=== PATIENT | male | born 1945 | race Caucasian/White ===

== ENCOUNTER → 2017-11-10 14:07 | Outpatient (CLI) | payer MEDICARE, SELFPAY ==
[2017-11-10 17:39] LABS: Amphetamine Urine VISTA NEGATIVE (<1000 ng/mL); Barbiturate Urine VISTA POSITIVE (< 200 ng/mL); Benzodiazepine Urine VISTA NEGATIVE (< 200 ng/mL); Cocaine Urine VISTA NEGATIVE (< 300 ng/mL); Ecstacy Urine VISTA NEGATIVE (< 500 ng/mL); Methadone Urine VISTA NEGATIVE (< 300 ng/mL); PCP Urine VISTA NEGATIVE (< 25 ng/mL); THC Urine VISTA NEGATIVE (< 50 ng/mL); Vista UDS pH Range 6
== END ==
PROVIDERS: Family Provider Family Medicine; PCP Family Medicine; Visit Provider Anesthesiology Pain Medicine
DX: F11.20 Opioid dependence, uncomplicated (principal)
CPT/HCPCS: 80307

== ENCOUNTER → 2019-05-03 15:02 | Outpatient (CLI) | payer MEDICARE, SELFPAY ==
--- NOTE | 2019-05-03 15:08 | RAD_ITS ---
STUDY: X-RAY - LUMBAR SPINE REASON FOR EXAM: Male, 73 years old. LOWER BACK PAIN. PATIENT STATES HAS HAD A LOT OF INJURY''S TO HIS BACK OVER THE YEARS. TECHNIQUE: 3 view(s) of the lumbar spine were obtained. COMPARISON: None FINDINGS: Normal lumbar lordosis. There is no substantial scoliosis. There is a normal alignment of the vertebrae. There is multilevel endplate spondylosis of the lumbar vertebrae. There is moderate loss of disc space at L5-S1 with mild degree of facet arthropathy. There is no demonstrated fracture. There is atherosclerotic calcification of the abdominal aorta without a demonstrated aneurysm. RAD/Lumbar Spine 2 or 3 Views IMPRESSION: Degenerative disc disease and facet arthropathy L5-S1. Electronically Signed: Tod So MD (Brooks) at 8:17 EST , Service support ,
== END ==
PROVIDERS: Family Provider Family Medicine; PCP Family Medicine; Referring Provider Anesthesiology Pain Medicine; Visit Provider Anesthesiology Pain Medicine
DX: M51.37 Other intervertebral disc degeneration, lumbosacral region (principal)
CPT/HCPCS: 72100

== ENCOUNTER 2021-06-03 16:07 | Outpatient (CLI) | payer MEDICARE, SELFPAY ==
--- NOTE | 2021-06-03 09:15 | BONBX_PTH ---
PATIENT: ARCELIA GONZALEZ LOC: [facility] U#:[id number] AGE/SX: 75/M ROOM: RE06/03/[address]: Dr. Berlin Castillo DO : 1945 BED: DIS: 06/03/2021 SPEC #: [id number] RECD: 06/03/21 15:05 STATUS: ANSELMO RAUL #: [id number] BRIAN: 06/03/21 09:[address]: Berlin Castillo DEPT: SURGICAL PATHOLOGY RECD BY: Sri Alexander ENTERED: 06/04/21 08:41 SP TYPE: Bone OTHR DR: Dr. Ajit Michelle MD [facility] Tissues: Vertebra, NOS Procedures: Decalcification bone/plaque Surgery Specimen Level IV HEADER OPERATION: Thoracic T12 kyphoplasty PRE-OP DIAGNOSIS: Wedge compression fracture T11-T12 TISSUE SUBMITTED: Bone T12 MICROSCOPIC DIAGNOSIS Bone T12, kyphoplasty: A piece of bone with reactive changes, clinically wedge compression fracture and blood clots. Negative for malignancy. PHUONG:cornell 06/05/2021 MICROSCOPIC DESCRIPTION Slides are reviewed. GROSS DESCRIPTION Received is one container labeled with the patient's name and not further designated. The specimen consists of multiple fragments of blood clot mixed with an elongated core of bone that in aggregate measure 2 x 1 x 0.1 cm. The specimen is totally submitted in one cassette after decalcification. / PHUONG:cornell 06/04/2021 TC:5 CPT: 73086, 69994
== END 2021-06-03 23:59 | disposition home or self-care (01) ==
LOC: LABSPEC 16:40
PROVIDERS: PCP Family Medicine; Referring Provider Orthopaedic Surgery; Visit Provider Orthopaedic Surgery
DX: S22.080A Wedge compression fracture of T11-T12 vertebra, initial encounter for closed fracture (principal); X58.XXXA Exposure to other specified factors, initial encounter
CPT/HCPCS: 88305; 88307; 88311

== ENCOUNTER 2022-01-15 07:19 | Inpatient (IN) | payer MEDICARE, SELFPAY ==
--- NOTE | 2022-01-09 10:45 | CASEMGMT ---
AKIKO WHITE Assessment: TC to pt for initial transition planning/care coordination assessment. RN CINDY introduced self and role at [facility], pt voices understanding and consents to assessment. Care providers, pharmacy, and demographics verified/updated. Admitting Dx: lumbar 5 sacral 1 posterior lumbar interbody fusion PCP:Viviana Specialists:abby Castillo Pharmacy: [facility] Retail Insurance: [employer] Prescription Benefit: yes LW/HPOA: Pt denies having a LW/DPOA and denies need for info regarding AD. He states his takes care of all of this but does not think he has one. LNOK: Geeta Andrew, ; Jered Andrew, brother Living Arrangements: Pt lives with in a mobile home with a ramp to enter. Pt reports he is I in ADL's and denies concerns at home. Transportation: Pt drives self and denies concerns with transportation. Pt states his brother can transport pt post surgery. DME/HHC/SNF: Pt has a CPAP at home, FWW, w/c and walk in shower. Pt denies hx of HHC or SNF stays. Pt states he wants to go to [facility] post surgery and [facility] TCU is his second choice. Pt has discussed this previously with a SW. Pt states his is fine to be alone when he is not there, denies dementia. Updated SW. Pt states no further concerns/needs. CM to follow. Advised pt to ask CM if any further question/concerns/needs arise, voices understanding. Pt Goal: [facility] Plan: TBD pending surgery, facility acceptance and precert
[2022-01-15] VITALS (14 sets, daily range): BP systolic 114–148; BP diastolic 62–117; PULSE 55–91; RESP 16–18; TEMP 36.1–36.7; O2SAT 90–98; BMI 29.5
[2022-01-15] MEDS: Lactated Ringers 1,000 ML 15 ML IV ×2 (06:29→10:30)
--- NOTE | 2022-01-15 07:15 | RAD_ITS ---
EXAM: XR LUMBOSACRAL SPINE, 2 OR 3 VIEWS CLINICAL INDICATION: L5-S1 POSTERIOR FUSION TECHNIQUE: Frontal and lateral views of the lumbar spine and sacrum. This report was created using [employer] report [employer] technology. COMPARISON: None. FINDINGS: AP and lateral fluoroscopic digital spot radiographs of the lower lumbar spine showing pedicular screws and rods at L5-S1 disc space level and disc implant with radiopaque markers inside L5-S1 disc space. RAD/Spine 1 View Any Level IMPRESSION: Normal intraoperative digital spot radiographs of the lower lumbar spine showing successful placement of pedicular screws and rods and disc implant at L5-S1 disc space level. Electronically Signed: Pietro Moya MD at 13:34 EDT ,
--- NOTE | 2022-01-15 07:16 | OP.PCM_ITS ---
Report of Operation Date of Procedure: 01/15/22 Pre-Operative Diagnosis: 1.Lumbar stenosis L5-S1 with spondylosis 2.Lumbar degenerative disc disease L5-S1 Post-Operative Diagnosis: 1.Lumbar stenosis L5-S1 with spondylosis 2.Lumbar degenerative disc disease L5-S1 Surgery/Procedure Performed:: 1. L5-S1 posterior lumbar interbody fusion 2. Insertion of intervertebral biomechanical device x1 3. Structural allograft for spinal fusion 4. L5 bilateral laminectomies, foraminotomies, facetectomies, decompression of bilateral nerve roots 5. S1 bilateral laminectomies, foraminotomies, facetectomies, decompression of bilateral nerve roots 6. L5-S1 posterior lateral fusion 7. Pedicle screw fixation 8. Local autograft for spinal fusion 9. Neuro monitoring bilateral upper and bilateral lower extremities Description of Surgical Findings:: The patient is a 76-year-old male with intractable back and leg pain. Image studies confirm the above diagnoses. He has failed conservative treatment to include medication physical therapy and injections. The patient opted for operative intervention understanding the risk to include but not limited to infection, bleeding, damage to nerves arteries and veins, possibility of spinal fluid leak, nonunion, hardware failure, continued pain, need for further surgery, deep vein thrombosis, pulmonary embolism, heart attack, risk of stroke or . The patient was identified in the preoperative holding area. There he received preoperative IV antibiotics and was then transferred to the operative suite. Once in the operative suite after general endotracheal anesthesia was establish ed the patient was positioned prone on the Shay operating table. All bony prominences were padded accordingly. The lumbar spine was prepped and draped in a standard surgical fashion. Bear hugger's were not turned on until the drapes were placed and sealed with Ioban. A midline incision was made and taken to the level of the lumbodorsal fascia. The fascia was divided and subperiosteal disse ction was taken down to the level of the transverse processes of L5 and the sacral ala bilaterally. Deep retractors were placed. A bone scalpel was used to make cuts along the lamina at L5 and then a series of Kerrisons and rongeurs were used removing the spinous process and lamina at L5. Then facetectomies of greater than 50% were performed as well as foraminotomies decompressing the bilateral L5 and S1 nerve roots. Given the severity of the stenosis I needed to perform wide bilateral laminectomies and near complete facetectomies in order to decompress the neural elements thus creating instability necessitating the fusion. I then proceeded with the interbody fusion. The nerve roots and dura were retracted medially and a knife was used to perform an annulotomy. Endplate elevators, curettes, and pituitaries were utilized to remove disc material. Endplates were prepared with a rasp. An appropriate sized intervertebral peek cage device measuring 9 mm was packed with morselized cancellous allograft and impacted into position completing the posterior lumbar interbody fusion at L5- S1. I then proceeded with pedicle screw fixation. A power bur was used for the starting points. Starting points were found at the junction of the superior articular process and transverse process at L5 bilaterally and the sacral ala bilaterally. Pedicle probes were placed bilaterally and then 6.5 x 55 mm screws were placed bilaterally at L5 and 6.5 x 50 mm screws were placed bilaterally at S1. The screws were tested with intraoperative neurophysiologic monitoring and they tested within normal limits. Connecting rods were then applied and secured with set screws. I then proceeded with the posterior lateral fusion. This was accomplished by decorticating the transverse process bilaterally at L5 and the sacral ala at S1. This decorticated bone was then bridged with local autograft from the decompression as well as morselized cancellous allograft therefore completing the posterior lateral fusion at L5-S1. The incision was thoroughly irrigated. Tisseel was placed over the dura as a hemostatic agent. A deep drain was placed. The fascia was closed with #1 Vicryl, subcutaneous with 2-0 Vicryl and skin with 2-0 nylon. Sterile dressing was applied with 4 x 4's ABD and tape. Sponge instrument and needle counts were correct at the end of the case. The patient was extubated and taken to the PACU without incident. Surgeon: Berlin Castillo Type of Anesthesia: General Drains: Hemovac Estimated Blood Loss (mL): 450 cc Fluids Replaced: 1500 cc Grafts/Implants Used: Unified spine, Talos, Vitae OS, DBM Complications None Admit VTE Documentation VTE Present on Admission: No
--- NOTE | 2022-01-15 07:16 | PCM.PN.ORT ---
Subjective Subjective The patient was seen postoperatively in the PACU. He is resting comfortably. His pain is controlled. He denies any numbness tingling or weakness Objective Data Objective Data Vital Signs: Vital Signs Temp Pulse Resp BP Pulse Ox O2 Del Method 97.1 F L 55 L 18 148/95 H 97 Room Air 01/15/22 06:19 01/15/22 06:19 01/15/22 06:19 01/15/22 06:19 01/15/22 06:19 01/15/22 06:19 Oxygen Delivery Method Room Air Weight: 200 lb Body Mass Index (BMI) 29.5 Physical Exam Const alert and no apparent distress General Appearance: cooperative and comfortable HEENT normocephalic and head/scalp atraumatic Head and Scalp: normal to inspection and normocephalic Eyes EOMs intact bilaterally and conjunctivae normal Neck full ROM General: normal visual inspection Chest inspection of chest normal and palpation of chest normal Resp normal respiratory effort and normal air movement Cardio regular rate, regular rhythm and peripheral pulses 2+ throughout GI soft to palpation, non-tender and non-distended Back/Spine Back/Spine Narrative: Dressing clean dry and intact. Drain in place and functioning with small amount of serosanguineous fluid present Cervical Spine: cervical ROM normal Thoracic Spine / Upper Back: normal to inspection Lumbar Spine / Lower Back: normal to inspection Extremity normal to inspection, full ROM, normal capillary refill, no clubbing, cyanosis or edema and no calf tenderness Skin no rashes or lesions noted General Skin Exam: no breakdown Neuro oriented x3, CN's II-XII intact bilaterally, moves all extremities, no focal motor deficits, no sensory deficits noted and deep tendon reflexes 2+ bilaterally Motor Exam: strength 5/5 throughout Assessment & Plan Assessment/Plan (1) Lumbar stenosis: PLAN: Okay to admit to floor See orders Pain control and activity as tolerated. Back brace on at all times while out of bed Continue antibiotics while drain in place Discharge planning likely home tomorrow
--- NOTE | 2022-01-15 07:16 | PCM.DC.SUM ---
Providers Date of Admission: 01/15/22 Primary Care Physician: Dr. Yulisa [facility] MD Reason For Visit: LUMBAR 5 SACRAL 1 POSTERIOR LUMBAR INTERBODY FUSIO Medications at Discharge Home Medications cholecalciferol (vitamin D3) 125 mcg (5,000 unit) tablet (Vitamin D3) 125 mcg PO DAILY supplement 10/03/21 donepezil 10 mg tablet 10 mg PO BID Dementia 10/03/21 duloxetine 40 mg capsule,delayed release 40 mg PO DAILY Depression 10/03/21 levothyroxine 100 mcg tablet 125 mcg PO DAILY Thyroid 10/03/21 memantine 10 mg tablet 10 mg PO BID Dementia 10/03/21 simvastatin 80 mg tablet 80 mg PO QHS HLD 10/03/21 hydrocodone-acetaminophen 5-325mg 5mg-325mg 1 tab PO Q6H 7 days #28 tabs 01/15/22 Hospital Course Operations - (L5-S1 posterior lumbar interbody fusion, decompression, posterior spinal fusion with instrumentation, use of allograft) Summary of Care Provided Hospital Course: The patient is a 76-year-old male who underwent L5-S1 posterior lumbar interbody fusion, decompression, posterior spinal fusion with instrumentation, use of allograft on 01/15/2022. He was subsequently admitted. The hospitalist was consulted for medical management. The patient progressed well. His pain was controlled and he was mobilizing well. His drain was pulled on postoperative day 1. No significant medical issues were reported. He was subsequently discharged home on 01/16/2022 to follow-up with Dr. Castillo in 3 weeks Physical Exam Const alert, oriented x3 and no apparent distress General Appearance: cooperative, comfortable and well kempt HEENT normocephalic and head/scalp atraumatic Eyes EOMs intact bilaterally and conjunctivae normal Neck full ROM General: normal visual inspection Chest inspection of chest normal and palpation of chest normal Resp normal respiratory effort Effort and Inspection: able to speak in complete sentences Cardio regular rate and peripheral pulses 2+ throughout GI soft to palpation, non-tender and non-distended Back/Spine Back/Spine Narrative: Dressing clean dry and intact. Incision well approximated with interrupted sutures in place. No tenderness erythema drainage or fluctuance Cervical Spine: cervical ROM normal Thoracic Spine / Upper Back: normal to inspection Lumbar Spine / Lower Back: normal to inspection Extremity normal to inspection, full ROM, normal capillary refill, no clubbing, cyanosis or edema and no calf tenderness Skin no rashes or lesions noted General Skin Exam: no breakdown Neuro oriented x3, CN's II-XII intact bilaterally, moves all extremities, no focal motor deficits, no sensory deficits noted and deep tendon reflexes 2+ bilaterally Motor Exam: strength 5/5 throughout Weight / BMI Weight Weight: 200 lb Body Mass Index (BMI) 29.5 D/C Instructions Discharge Diet: No restrictions Weight Bearing Status: Weight bearing as tolerated Additional Activity Instructions: No repetitive bending twisting or lifting greater than 5 pounds. Back brace on at all times while out of bed Call your doctor if your incision/area has: Continuous Slow Oozing, Sudden Increased Bleeding, Increased Pain/ Swelling, Increased Redness, Foul Smelling Discharge and Swelling at the incision site Call your doctor if you observe: Fever of 101 or Higher, Coldness, Increased Pain, Numbness or Tingling, Change in Color, Inability to urinate, Inability to have a bowel movement, Using more than 1 pad per hour, Shortness of breath, Dizziness, Fainting spells, Swelling in the ankles, Chest pain, Prolonged hiccupping, Increased palpitations (irregular heartbeat), Calf discomfort and Uncontrolled pain Cleanse incision/area with: Do not get Incision Wet and Keep Dressing Clean & Dry Additional Dressing/Incision Instructions: Change dressing daily with iodine gauze and tape. [place] dressing to shower Please Follow Up With: Berlin Castillo DO When: 3 weeks Meaningful Use Info Meaningful Use Diagnoses (Choose all that apply): None applicable Discharge Plan Admission Admit Date/Time: 01/15/22 07:19 Attending Provider: Berlin Castillo Primary Care Provider: Yulisa [facility] Consulting Providers: Parvin Nieto ; Mauri Gillespie Instructions Additional Instructions / Restrictions: 1. During your procedure, you received sedation through your IV. Please follow these instructions for the next 24 hours: Do not drive a motor vehicle, do not drink any alcoholic beverages, and do not sign any legal documents or make personal or business decisions. A responsible adult should stay with you at least 6 hours after the procedure. 2. Keep your surgical site/incision clean and the dressing dry and intact. Change dressing daily you may use an ice pack at the surgical site to reduce any swelling or discomfort. 3. Monitor the incision site for any signs or symptoms of infection. Watch for redness, excessive swelling or drainage, or continued pain at the incision site after 3 days. Contact your physician immediately for a fever, chills or a temperature of 101.5? F or greater. 4. Take your medication exactly as prescribed by your physician. Do not attempt to wean yourself off any of your medications even though your pain is improving. This process needs to be carefully monitored by your doctor. Take any antibiotics prescribed exactly as directed and until they are gone. 5. Avoid stretching, bending, pulling, twisting or any sudden movements. Do not bend or twist at the waist. Wear your back brace at all times when out of bed 6. No lifting greater than 5 pounds. 7. Do not operate a motor vehicle, equipment or a power tool while taking pain medication 8. Do not have any manipulation done by a chiropractor or any other physician without first consulting with the surgeon 9. Please contact our office if you are even scheduled for a CT scan or an MRI. 10. Please call us if you have any questions, problems or concerns. Discharge Orders/Prescriptions Prescriptions: New hydrocodone-acetaminophen 5-325 mg tablet 1 tab PO Q6H 7 Days Qty: 28 0RF Continued donepezil 10 mg Tablet 10 mg PO BID simvastatin 80 mg Tablet 80 mg PO QHS levothyroxine 100 mcg Tablet 125 mcg PO DAILY memantine 10 mg Tablet 10 mg PO BID cholecalciferol (vitamin D3) [Vitamin D3] 125 mcg (5,000 unit) Tablet 125 mcg PO DAILY duloxetine 40 mg Capsule,Delayed Release(Dr/Ec) 40 mg PO DAILY Referrals / Follow Up: Yulisa Hernandez MD [Primary Care Provider] - Berlin Castillo DO [Med Staff - Active Staff] - Disposition Disposition (needs filled in before D/C Order can be placed): Home, Self Care
[2022-01-15] MEDS: Cefazolin 2 GM in 0.9% Normal Saline 100 ML IV (07:30)
[2022-01-15] MEDS: THROMBIN (RECOMBINANT) 20,000 UNIT VIAL 20000 UNIT TOPICAL ×2 (08:30)
[2022-01-15] MEDS: Heparin 10,000 UNITS/10 ML Vial 10000 UNITS (09:43)
--- NOTE | 2022-01-15 13:59 | CASEMGMT ---
Social Work SW informed by RNCM, Paula, that pt wants [facility] post surgery for rehab. HERMES called Anna at [facility] to confirm [facility] in network for pt. Anna explained pt previously set to go to [facility] for other concerns but ended by escobar covid. Anna looked pt up and stated with out of network benefit pt would still be responsible for 50% co-pay of $184 per day. HERMES Lopez notified. PLAN: Await post surgery PT/OT evals to determine if SNF is needed. Emily David, MIKO
--- NOTE | 2022-01-15 14:19 | CON.PCM.HO_ITS ---
Assessment & Plan Assessment/Plan (1) Lumbar stenosis: PLAN: Plan #Spinal stenosis s/p PLIF of L5-S1 * management as per spine surgery * PT/OT on board. Fall precautions * incentive spirometry use * pain management as per primary team * # BAMBI: on CPAP qhs #Deemntia: on donepezil and memantine #Hypothyroidism: on synthroid #Hyperlipidemia: on statin DVT prophylaxis: as per primary team Thank you for the courtesy of the consult. Hospitalist team will continue to follow with you. HPI Consult Data Date of Consult: 01/15/22 HPI Narrative Reason for Consultation: medical management HPI Narrative: ARCELIA GONZALEZ, is a 76 M who was admitted to the orthopedic spine service after he had laminectomy and decompression of L3-L4. Hospitalist team was consulted for medical management. Patient seen and examined. He had no acute complaints. He denied any chest pain, shortness of breath, nausea vomiting or diarrhea. Review of systems otherwise negative. He uses a CPAP machine at home for sleep apnea. Pain was well controlled. PENDING SALE TO [facility] Medical History (Updated 01/15/22 @ 07:[address] Berlin Castillo, ) CPAP (continuous positive airway pressure) dependence Dementia Depression Former smoker Gait instability Gastric reflux High cholesterol History of diverticulitis Injury of head and neck Loss of hearing Migraine headache Thyroid disease Home Medications cholecalciferol (vitamin D3) 125 mcg (5,000 unit) tablet (Vitamin D3) 125 mcg PO DAILY supplement 10/03/21 [History Last Taken 01/14/22] donepezil 10 mg tablet 10 mg PO BID Dementia 10/03/21 [History Last Taken 01/14/22] duloxetine 40 mg capsule,delayed release 40 mg PO DAILY Depression 10/03/21 [History Last Taken 01/14/22] levothyroxine 100 mcg tablet 125 mcg PO DAILY Thyroid 10/03/21 [History Last Taken 01/14/22] memantine 10 mg tablet 10 mg PO BID Dementia 10/03/21 [History Last Taken 01/14/22] simvastatin 80 mg tablet 80 mg PO QHS HLD 10/03/21 [History Last Taken 01/14/22] hydrocodone-acetaminophen 5-325mg 5mg-325mg 1 tab PO Q6H 7 days #28 tabs 01/15/22 [Rx Last Taken Unknown] Allergy/AdvReac Type Severity Reaction Status Date / Time No Known Allergies Allergy Verified 01/15/22 06:09 Surgical History (Updated 12/31/21 @ 13:11 by Alexandria Shrestha) History of appendectomy History of cholecystectomy History of colectomy History of colonoscopy Hx of foot surgery Social History Smoking Status: Former smoker ROS Constitutional Constitutional: Denies anorexia, chills, fatigue, fever(s), malaise or weakness Eyes Eyes: Denies change in vision ENT HEENT: Denies dysphagia, headache(s) or sore throat Cardiovascular Cardiovascular: Denies chest pain, dyspnea on exertion, edema, lightheadedness, orthopnea, palpitations, paroxysmal nocturnal dyspnea, rapid heart rate or syncope Respiratory/Chest Respiratory/Chest: Denies cough, dyspnea, hemoptysis, shortness of breath at rest or shortness of breath with exertion Gastrointestinal Gastrointestinal: Denies abdominal pain, constipation, diarrhea, nausea or vomiting Genitourinary Genitourinary: Denies dysuria Musculoskeletal Musculoskeletal: Denies arthralgias or back pain Neurologic Neurologic: Denies confusion, disequilibrium, dizziness, focal weakness, seizures or syncope Psychiatric Psychiatric: Denies anxiety or depression Physical Exam Const alert, oriented x3 and no apparent distress General Appearance: cooperative HEENT normocephalic, head/scalp atraumatic, hearing grossly normal bilaterally and moist oral mucous membranes Mouth: oral and palatal mucosa normal Eyes PERRL, EOMs intact bilaterally and conjunctivae normal Neck no lymphadenopathy Resp normal respiratory effort, no retractions, no use of accessory muscles and clear to auscultation bilaterally Resp Narrative: on 2L of oxygen by nasal canula Cardio regular rate, regular rhythm, S1 normal heart sound, S2 normal heart sound and no murmurs GI normal to inspection, nondistended, normoactive bowel sounds, soft to palpation and non-tender Skin Skin Narrative: intact dressing over lower spine at surgical site; drain in place Neuro oriented x3, CN's II-XII intact bilaterally, moves all extremities and no focal motor deficits Sensorium / Orientation: awake Psych affect normal Radiology Impression Spine X-Ray 01/15/22 07:15 IMPRESSION: Normal intraoperative digital spot radiographs of the lower lumbar spine showing successful placement of pedicular screws and rods and disc implant at L5-S1 disc space level. Electronically Signed: Pietro Moya MD at 13:34 EDT , Charges/Coding Visit Charges Office Visits / Consults: [id number] IP Consult L4
[2022-01-15] MEDS: Acetaminophen 500 MG Tablet 1000 MG PO ×2 (15:29→20:50)
[2022-01-15] MEDS: oxyCODONE 5 MG Tablet PO (15:29)
[2022-01-15] MEDS: DULoxetine Hcl 20 MG Capsule 40 MG PO (15:30)
[2022-01-15] MEDS: Donepezil HCl 10 MG Tablet PO ×2 (15:30→20:50)
[2022-01-15] MEDS: Cholecalciferol (Vit D3) 125 MCG CAPSULE (5,000 UNITS) PO (15:31)
[2022-01-15] MEDS: Memantine Hydrochloride 10 MG Tablet PO ×2 (15:31→20:50)
[2022-01-15] MEDS: Cefazolin 1 GM/50 ML BAG IV ×2 (15:36→23:51)
[2022-01-15] MEDS: Lactated Ringers 1,000 ML 100 ML IV (17:00)
[2022-01-15] MEDS: Ensure Surgery 237 ML LIQUID PO (18:11)
[2022-01-15] MEDS: Levothyroxine 125 MCG Tablet PO (18:11)
[2022-01-15] MEDS: Atorvastatin Calcium 40 MG Tablet PO (20:50)
[2022-01-16] VITALS (11 sets, daily range): BP systolic 107–152; BP diastolic 63–80; PULSE 53–72; RESP 16–18; TEMP 36.7–37.3; O2SAT 84–98
[2022-01-16] MEDS: Acetaminophen 500 MG Tablet 1000 MG PO ×3 (05:17→20:38)
[2022-01-16] MEDS: Levothyroxine 125 MCG Tablet PO (05:17)
[2022-01-16] MEDS: 0.9% Saline Lock 10 ML Syringe IV ×3 (05:18→20:39)
[2022-01-16] MEDS: Ensure Surgery 237 ML LIQUID PO ×2 (07:48→17:37)
[2022-01-16] MEDS: oxyCODONE 5 MG Tablet PO ×3 (07:50→19:07)
[2022-01-16] MEDS: Ondansetron 4 MG/2 ML Vial IV (09:17)
--- NOTE | 2022-01-16 09:33 | NURSING ---
after breakfast pt with persistant prod cough with copious amts clear stringy sputum. pt gagging but denies feeling nauseated when asked. pt tearing up. o2 back on for desat 89%. dr. valle in room while pt having episode. unable to void and bladder scanned for 64. cxr ordered.
--- NOTE | 2022-01-16 09:35 | RAD_ITS ---
STUDY: X-RAY CHEST REASON FOR EXAM: Male, 76 years old. SOB TECHNIQUE: PA and lateral views of the chest. COMPARISON: None. FINDINGS: Linear opacity in the perihilar left lung consistent with scar discoid atelectasis. There is no demonstrated pleural abnormality. Normal size heart. Normal mediastinum and teja. Normal visualized pulmonary arteries. Normal visualized aortic arch and descending thoracic aorta. Normal visualized thoracic spine. Normal visualized ribs, clavicles, and shoulders. There is no demonstrated abnormality of the visualized soft tissue structures of the upper abdomen. RAD/Chest PA and Lateral IMPRESSION: Lingular discoid atelectasis or scarring. Electronically Signed: Mark Murry MD at 10:00 EDT ,
--- NOTE | 2022-01-16 10:09 | PN.HOSP_ITS ---
Subjective Subjective Patient seen and examined. He didnt feel very well today. He was coughing and retching, and bringing up a lot of clear sputum. He was also retching, with lots of clear sputum. He denied feeling short of breath. Review of systems is otherwise negative. Nurse subsequently informed me he was noted to have a mouth droop which was most pronounced when talking. Objective Data Objective Data Vital Signs: Vital Signs Temp Pulse Resp BP Pulse Ox O2 Del Method O2 Flow Rate 98.0 F 53 L 16 114/68 97 Nasal Cannula 2 01/16/22 06:02 01/16/22 07:00 01/16/22 06:02 01/16/22 06:02 01/16/22 07:58 01/16/22 07:58 01/16/22 07:58 Oxygen Flow Rate (L/min) 2 Oxygen Delivery Method Nasal Cannula Weight: 200 lb Body Mass Index (BMI) 29.5 Intake & Output: Intake and Output for Last 24 Hours 01/14/22 01/15/22 01/16/22 23:59 23:59 23:59 Intake Total 1900 / 1900 1190.33 / 1190.33 Output Total 1395 / 1395 1000 / 1000 Balance 505 / 505 190.33 / 190.33 Radiography Diagnostic Testing: Radiology Impression Spine X-Ray 01/15/22 07:15 IMPRESSION: Normal intraoperative digital spot radiographs of the lower lumbar spine showing successful placement of pedicular screws and rods and disc implant at L5-S1 disc space level. Electronically Signed: Pietro Moya MD at 13:34 EDT , Chest X-Ray 01/16/22 09:35 IMPRESSION: Lingular discoid atelectasis or scarring. Electronically Signed: Mark Murry MD at 10:00 EDT , Physical Exam Const alert, oriented x3 and no apparent distress General Appearance: cooperative HEENT normocephalic, head/scalp atraumatic, hearing grossly normal bilaterally and moist oral mucous membranes Head and Scalp: normocephalic Mouth: oral and palatal mucosa normal Eyes PERRL, EOMs intact bilaterally and conjunctivae normal Neck no lymphadenopathy Resp normal respiratory effort, no retractions and no use of accessory muscles Resp Narrative: few crackles bibasally, no wheezes. On 2L of oxygen by nasal canula Cardio regular rate, regular rhythm, S1 normal heart sound, S2 normal heart sound and no murmurs GI normal to inspection, nondistended, normoactive bowel sounds, soft to palpation and non-tender Extremity normal to inspection and full ROM Skin Skin Narrative: intact dressing over lower spine at surgical site; drain in place Neuro oriented x3, CN's II-XII intact bilaterally, moves all extremities and no focal motor deficits Sensorium / Orientation: awake and alert Motor Exam: strength 5/5 throughout Psych affect normal Assessment & Plan Assessment/Plan (1) Lumbar stenosis: PLAN: Plan #Spinal stenosis s/p PLIF of L5-S1 * today is POD 1 * management as per spine surgery * PT/OT on board. Fall precautions * incentive spirometry use * pain management as per primary team * #Hypoxia * patient throwing up this morning; there is concern about aspiration * saturation dropped to the high 80s, but came up to the 90s * CXR ordered which showed lingular discoid atelectasis or scarring * titrate oxygen to maintain sats >90% * breathing treatment with bronchodilators * IV zofran to help with nausea. * hold off on antibiotics for now. * #Facial droop with new onset dysphagia * patient noted to have a mouth droop later this morning, with associated new onset dysphagia * will get CT of the brain to rule out a stroke * speech therapy consulted * # BAMBI: on CPAP qhs #Dementia: on donepezil and memantine #Hypothyroidism: on synthroid #Hyperlipidemia: on statin DVT prophylaxis: as per primary team Charges/Coding Visit Charges Inpatient E&M: 71838 Subs Hosp L3
--- NOTE | 2022-01-16 11:20 | CASEMGMT ---
Social Work SW spoke with pt who states pt has a health care POA naming her Geeta Andrew and a living will. HERMES informed Geeta documents are not on file and requested they be brought in for scanning. MIKO Iqbal
--- NOTE | 2022-01-16 11:48 | CASEMGMT ---
Social Work SW attempted to meet with pt to discuss discharge plan however pt was not feeling well. Phone call to pt Geeta and HERMES introduced self and role of SW. Geeta states the original plan was for pt to go to SNF, but after speaking with the physician and realizing pt will not start therapy for 4-6 weeks they feel pt can return home. Pt states she will be with pt and assist with any care needs. Pt sister Jenny had called in prior to surgery with concerns with return home. Pt gave SW permission to call Jenny. Phone call placed and SW spoke with Jenny. She is also now agreeable to pt return home with . Jenny states family will be monitoring pt to make sure he is receiving needed care. Plan: Home with family MIKO Merlos
--- NOTE | 2022-01-16 12:44 | CT_ITS ---
STUDY: CT BRAIN WITHOUT CONTRAST REASON FOR EXAM: Male, 76 years old. new onset mouth droop, dysphagia RADIATION DOSAGE (If Supplied By Facility): CTDIvol = ( 44.99 ) mGy, DLP = ( 745.49 ) mGycm TECHNIQUE: Transaxial CT imaging of the brain was performed without administration of intravenous contrast material. Individualized dose optimization techniques were used for this CT. COMPARISON: No relevant priors. FINDINGS: Normal soft tissue structures. Normal calvarium. There is mild cerebral atrophy with widening of the extra-axial spaces and ventricular dilatation. There are areas of decreased attenuation within the white matter tracts of the supratentorial brain, consistent with microvascular disease changes. Normal basal ganglia and thalami. Normal brainstem. Normal cerebellum. There is no intracranial hemorrhage. There are no findings of an acute ischemic infarction. Normal visualized paranasal sinuses. CT/Brain/Head without Contrast IMPRESSION: Chronic involutional changes of the brain. Electronically Signed: Mark Murry MD at 13:23 EDT ,
--- NOTE | 2022-01-16 12:58 | NURSING ---
pt sister here and concerned that mouth still looks funny and crooked but better now as to when pt came to room from or. charge weigher in and pt smiled and no deficits. pt given mirror and denies anything looking off for him. dr. valle aware and ct ordered to rule out anything d/t dysphagia episode this am.
[2022-01-16] MEDS: DULoxetine Hcl 20 MG Capsule 40 MG PO (14:00)
[2022-01-16] MEDS: Memantine Hydrochloride 10 MG Tablet PO ×2 (14:01→20:39)
[2022-01-16] MEDS: Donepezil HCl 10 MG Tablet PO ×2 (14:01→20:39)
[2022-01-16] MEDS: Cholecalciferol (Vit D3) 125 MCG CAPSULE (5,000 UNITS) PO (14:01)
--- NOTE | 2022-01-16 14:07 | PHA.DC.MR ---
Pharmacy Service has performed discharge medication reconciliation for this patient upon transfer to inpatient rehab Home Medications cholecalciferol (vitamin D3) 125 mcg (5,000 unit) tablet (Vitamin D3) 125 mcg PO DAILY supplement 10/03/21 donepezil 10 mg tablet 10 mg PO BID Dementia 10/03/21 duloxetine 40 mg capsule,delayed release 40 mg PO DAILY Depression 10/03/21 levothyroxine 100 mcg tablet 125 mcg PO DAILY Thyroid 10/03/21 memantine 10 mg tablet 10 mg PO BID Dementia 10/03/21 simvastatin 80 mg tablet 80 mg PO QHS HLD 10/03/21 hydrocodone-acetaminophen 5-325mg 5mg-325mg 1 tab PO Q6H 7 days #28 tabs 01/15/22 The patient's discharge medication list was reviewed for discrepancies and discrepancies were resolved.
--- NOTE | 2022-01-16 15:50 | MDS.RN ---
sister and dr. tinsley called to update that pt will not be dc'd today per hospitalist care.
--- NOTE | 2022-01-16 16:39 | NURSING ---
pt yelling out and more confused. scopolamine patch dc'd. attempted to orient. pt not using call light and yelling out.
[2022-01-16] MEDS: Morphine 4 MG/ML Syringe IV (18:16)
[2022-01-16] MEDS: cycloBENZAPRine HCl 10 MG Tablet PO (18:49)
--- NOTE | 2022-01-16 19:58 | PN.HOSP_ITS ---
Hospitalist Note Patient with underlying dementia and has had agitation in the evenings. Will add low dose seroquel and continue to monitor. Also, given stability and agitation, not able to keep his irrigation engineer on will d/c.
[2022-01-16] MEDS: QUEtiapine 25 MG Tablet 12.5 MG PO (20:38)
[2022-01-16] MEDS: Atorvastatin Calcium 40 MG Tablet PO (20:39)
[2022-01-17] VITALS (9 sets, daily range): BP systolic 118–151; BP diastolic 62–93; PULSE 62–85; RESP 16–19; TEMP 36.4–36.8; O2SAT 88–100
[2022-01-17] MEDS: oxyCODONE 5 MG Tablet PO ×4 (00:23→17:13)
[2022-01-17] MEDS: cycloBENZAPRine HCl 10 MG Tablet PO ×2 (02:54→16:12)
[2022-01-17] MEDS: Levothyroxine 125 MCG Tablet PO (05:53)
[2022-01-17] MEDS: Acetaminophen 500 MG Tablet 1000 MG PO ×3 (05:53→20:59)
[2022-01-17 08:01] LABS: Absolute Lymphocyte Count 0.88 X10^3/uL (0.83-4.51); Absolute Neutrophil Count 7.9 X10^3/uL (2.0-7.7); Basophil# 0.03 X10^3/uL; Basophil% 0.3 % (0-1); Eosinophil# 0.03 X10^3/uL; Eosinophils% 0.3 % (0-5); Hemoglobin 11.5 g/dL (13.0-16.5); Lymphocyte # 0.88 X10^3/ul (0.83-4.51); Lymphocyte % 8.9 % (19-41); Mean Corp Hgb Conc 32.9 g/dL (32-36); Mean Corpuscular Hgb 32.2 pg (27.0-32.0); Monocyte# 1.02 X10^3/uL; Monocyte% 10.3 % (0-10); NRBC Flagged by Analyzer 0 % (0-5); Neutrophil # 7.89 X10^3/uL (2.7-7.7); Neutrophil % 79.6 % (47-70); Platelet Count 133 K/mm3 (150-450); RBC Distribution Width CV 12.8 % (11.6-14.6); RBC Distribution Width SD 45.9 fl (35.1-43.9); Red Blood Count 3.57 M/mm3 (4.6-6.2); White Blood Count 9.9 K/mm3 (4.4-11.0)
[2022-01-17] MEDS: Donepezil HCl 10 MG Tablet PO ×2 (08:09→21:03)
[2022-01-17] MEDS: Ensure Surgery 237 ML LIQUID PO ×2 (08:09→13:19)
[2022-01-17] MEDS: Memantine Hydrochloride 10 MG Tablet PO ×2 (08:09→20:59)
[2022-01-17 08:14] LABS: Anion Gap 6 (5-15); BUN 18 mg/dL (7-18); BUN/Creat Ratio 24.2 RATIO (10-20); Calcium,Total 8.3 mg/dL (8.5-10.1); Chloride 102 mmol/L (98-107); Creatinine, Serum 0.74 mg/dL (0.70-1.30); EST Glomerular Filtration Rate 109 mL/min (>60); Est Glom Filt Rate - Afr Amer 132 mL/min (>60); Estimated Creatinine Clearance 64.81 ml/min; Glucose 136 mg/dL (74-106); Potassium 3.9 mmol/L (3.5-5.1); Sodium Level 138 mmol/L (136-145)
--- NOTE | 2022-01-17 10:12 | PN.HOSP_ITS ---
Subjective Subjective Patient seen and examined. He had no active complaints and had an uneventful night. He is on 2L of oxygen. He is no longer bringing up a lot of sputum. He denies fever, chills, cough, shortness of breath, nausea, vomiting or diarrhea. Review of systems is otherwise negative. Objective Data Objective Data Vital Signs: Vital Signs Temp Pulse Resp BP Pulse Ox O2 Del Method O2 Flow Rate 97.6 F L 62 18 151/86 H 92 Nasal Cannula 2 01/17/22 02:53 01/17/22 02:53 01/17/22 02:53 01/17/22 02:53 01/17/22 03:05 01/17/22 03:06 01/17/22 09:30 Oxygen Flow Rate (L/min) 2 Oxygen Delivery Method Nasal Cannula Weight: 199 lb 15.983 oz Body Mass Index (BMI) 29.5 Intake & Output: Intake and Output for Last 24 Hours 01/15/22 01/16/22 01/17/22 23:59 23:59 23:59 Intake Total 1900 / 1900 1780.33 / 1780.33 700 / 700 Output Total 1395 / 1395 1450 / 1450 650 / 650 Balance 505 / 505 330.33 / 330.33 50 / 50 Lab / Micro Data Result Diagrams: 01/17/22 07:40 01/17/22 07:40 Labs: Laboratory Results - last 24 hr 01/17/22 07:40: WBC 9.9, RBC 3.57 L, Hgb 11.5 L, Hct 35.0 L, MCV 98.0 H, MCH 32.2 H, MCHC 32.9, RDW Std Deviation 45.9 H, RDW Coeff of [place] 12.8, Plt Count 133 L, MPV 10.0, Immature Gran % (Auto) 0.600, Neut % (Auto) 79.6 H, Lymph % (Auto) 8.9 L, [place] % (Auto) 10.3 H, Eos % (Auto) 0.3, Baso % (Auto) 0.3, Absolute Neuts (auto) 7.9 H, Absolute Lymphs (auto) 0.88, Nucleated RBC % 0 01/17/22 07:40: Sodium 138, Potassium 3.9, Chloride 102, Carbon Dioxide 30.0, Anion Gap 6, BUN 18, Creatinine 0.74, Estim Creat Clear Calc 64.81, Est GFR (MDRD) Af Amer 132, Est GFR (MDRD) Non-Af 109, BUN/Creatinine Ratio 24.2 H, Glucose 136 H, Calcium 8.3 L Radiography Diagnostic Testing: Radiology Impression Brain CT 01/16/22 12:44 IMPRESSION: Chronic involutional changes of the brain. Electronically Signed: Mark Murry MD at 13:23 EDT , Physical Exam Const alert, oriented x3 and no apparent distress General Appearance: cooperative HEENT normocephalic, head/scalp atraumatic, hearing grossly normal bilaterally and moist oral mucous membranes Head and Scalp: normocephalic Eyes PERRL, EOMs intact bilaterally and conjunctivae normal Neck no lymphadenopathy Resp normal respiratory effort, no retractions, no use of accessory muscles and clear to auscultation bilaterally Resp Narrative: on 2L of oxygen by nasal canula Cardio regular rate, regular rhythm, S1 normal heart sound, S2 normal heart sound and no murmurs GI normal to inspection, nondistended, normoactive bowel sounds, soft to palpation and non-tender Extremity normal to inspection and full ROM Skin Skin Narrative: intact dressing over lower spine at surgical site Neuro oriented x3, CN's II-XII intact bilaterally, moves all extremities and no focal motor deficits Sensorium / Orientation: awake and alert Motor Exam: strength 5/5 throughout Psych affect normal Assessment & Plan Assessment/Plan (1) Lumbar stenosis: PLAN: Plan #Spinal stenosis s/p PLIF of L5-S1 * today is POD 2 * management as per spine surgery * PT/OT on board. Fall precautions * incentive spirometry use * pain management as per primary team * #Hypoxia * resolved. * On 2L of oxygen; to wean off oxygen as tolerated * breathing treatment with bronchodilators * * #Facial droop with new onset dysphagia * facial droop resolved and dysphagia ahs resolved * CT of the brain was negative. * had no swallowing difficulty when speech therapy evaluated. * # BAMBI: on CPAP qhs #Dementia: on donepezil and memantine #Hypothyroidism: on synthroid #Hyperlipidemia: on statin DVT prophylaxis: as per primary team Disposition: patient ok for discharge from hospitalist standpoint Charges/Coding Visit Charges Inpatient E&M: 08251 Subs Hosp L2
[2022-01-17] MEDS: DULoxetine Hcl 20 MG Capsule 40 MG PO (10:51)
[2022-01-17] MEDS: Cholecalciferol (Vit D3) 125 MCG CAPSULE (5,000 UNITS) PO (10:51)
[2022-01-17] MEDS: Morphine 4 MG/ML Syringe IV ×3 (13:20→17:57)
[2022-01-17] MEDS: 0.9% Saline Lock 10 ML Syringe IV ×4 (13:21→17:57)
--- NOTE | 2022-01-17 15:33 | CM.ED ---
Addendum entered by Trudy Regalado 01/17/22 15:51: As family is not in the room with patient this writer editor had asked RN to provide patient with SNF list in [facility] for his review. However, chart review noted that patient had previously wanted to go to [facility]. Plan: [facility] Original Note: SW received call from RN caring for patient. Family reports that patient can not go home. Family wants patient to go to [facility]. Family is not in the room. HERMES sent RN list of SNF in [facility]. Trudy CASTAÑEDA
[2022-01-17] MEDS: dexAMETHasone 4 MG/ML Vial IV (16:12)
[2022-01-17] MEDS: Atorvastatin Calcium 40 MG Tablet PO (20:59)
[2022-01-17] MEDS: QUEtiapine 25 MG Tablet 12.5 MG PO (20:59)
[2022-01-17] MEDS: HYDROmorphone 0.5 MG/0.5 ML SYRINGE IV (21:00)
[2022-01-18] MEDS: 0.9% Saline Lock 10 ML Syringe IV ×3 (00:41→15:14)
[2022-01-18] MEDS: dexAMETHasone 4 MG/ML Vial IV ×3 (00:41→15:13)
[2022-01-18 03:25] VITALS: BP 142/77; PULSE 66; RESP 18; TEMP 36.9; O2SAT 92
[2022-01-18] MEDS: Acetaminophen 500 MG Tablet 1000 MG PO ×2 (06:18→22:19)
[2022-01-18] MEDS: Levothyroxine 125 MCG Tablet PO (06:18)
[2022-01-18 08:45] VITALS: BP 163/76; PULSE 83; RESP 18; TEMP 36.5; O2SAT 95
[2022-01-18] MEDS: DULoxetine Hcl 20 MG Capsule 40 MG PO (08:53)
[2022-01-18] MEDS: Cholecalciferol (Vit D3) 125 MCG CAPSULE (5,000 UNITS) PO (08:53)
[2022-01-18] MEDS: Ensure Surgery 237 ML LIQUID PO ×2 (08:53→17:00)
[2022-01-18] MEDS: oxyCODONE 5 MG Tablet PO ×2 (08:54→16:58)
[2022-01-18] MEDS: Memantine Hydrochloride 10 MG Tablet PO ×2 (08:54→22:18)
[2022-01-18] MEDS: Donepezil HCl 10 MG Tablet PO ×2 (08:54→22:19)
--- NOTE | 2022-01-18 09:44 | PN.HOSP_ITS ---
Subjective Subjective Patient seen and examined. HE complained of a migraine headache. He had no other complaints. Review of systems is otherwise negative. Objective Data Objective Data Vital Signs: Vital Signs Temp Pulse Resp BP Pulse Ox O2 Del Method O2 Flow Rate 98.4 F 66 18 142/77 H 92 Nasal Cannula 2 01/18/22 03:25 01/18/22 03:25 01/18/22 03:25 01/18/22 03:25 01/18/22 03:25 01/18/22 03:25 01/18/22 03:25 Oxygen Flow Rate (L/min) 2 Oxygen Delivery Method Nasal Cannula Weight: 199 lb 15.983 oz Body Mass Index (BMI) 29.5 Intake & Output: Intake and Output for Last 24 Hours 01/16/22 01/17/22 01/18/22 23:59 23:59 23:59 Intake Total 1780.33 / 1780.33 1000 / 1000 Output Total 1450 / 1450 1950 / 1950 400 / 400 Balance 330.33 / 330.33 -950 / -950 -400 / -400 Lab / Micro Data Result Diagrams: 01/17/22 07:40 01/17/22 07:40 Physical Exam Const alert, oriented x3 and no apparent distress General Appearance: cooperative HEENT normocephalic, head/scalp atraumatic, hearing grossly normal bilaterally and moist oral mucous membranes Head and Scalp: normocephalic Mouth: oral and palatal mucosa normal Eyes PERRL, EOMs intact bilaterally and conjunctivae normal Neck no lymphadenopathy Resp normal respiratory effort, no retractions, no use of accessory muscles and clear to auscultation bilaterally Resp Narrative: on 2L of oxygen by nasal canula Cardio regular rate, regular rhythm, S1 normal heart sound, S2 normal heart sound and no murmurs GI normal to inspection, nondistended, normoactive bowel sounds, soft to palpation and non-tender Extremity normal to inspection and full ROM Skin Skin Narrative: intact dressing over lower spine at surgical site. Abdominal brace in place Neuro oriented x3, CN's II-XII intact bilaterally, moves all extremities and no focal motor deficits Sensorium / Orientation: awake and alert Motor Exam: strength 5/5 throughout Psych affect normal Assessment & Plan Assessment/Plan (1) Lumbar stenosis: PLAN: Plan #Spinal stenosis s/p PLIF of L5-S1 * today is POD 3 * management as per spine surgery * PT/OT on board. Fall precautions * incentive spirometry use * pain management as per primary team * #Hypoxia * resolved. * On 2L of oxygen; to wean off oxygen as tolerated * breathing treatment with bronchodilators * * #Facial droop with new onset dysphagia * facial droop resolved and dysphagia has resolved * CT of the brain was negative. * had no swallowing difficulty when speech therapy evaluated. * # BAMBI: on CPAP qhs #Dementia: on donepezil and memantine #Hypothyroidism: on synthroid #Hyperlipidemia: on statin DVT prophylaxis: as per primary team Disposition: patient ok for discharge from hospitalist standpoint. Now awaiting placement Charges/Coding Visit Charges Inpatient E&M: 57720 Subs Hosp L2
[2022-01-18] MEDS: Acetaminophen/Butalbital/Caffe 1 Tablet PO ×2 (09:57→20:21)
[2022-01-18 17:00] VITALS: BP 164/88; PULSE 81; RESP 18; TEMP 36.8; O2SAT 95
--- NOTE | 2022-01-18 19:39 | PCM.PN.ORT ---
Subjective Subjective The patient was seen and examined. He is lying in bed resting comfortably. He is slightly confused and agitated but otherwise in no acute distress. He is moving around without difficulty. He does complain of some pain in the lower back at his surgery site when asked. Objective Data Objective Data Vital Signs: Vital Signs Temp Pulse Resp BP Pulse Ox O2 Del Method O2 Flow Rate 98.3 F 81 18 164/88 H 95 Room Air 2 01/18/22 17:00 01/18/22 17:00 01/18/22 17:00 01/18/22 17:00 01/18/22 17:00 01/18/22 17:00 01/18/22 10:30 Oxygen Flow Rate (L/min) 2 Oxygen Delivery Method Room Air Weight: 199 lb 15.983 oz Body Mass Index (BMI) 29.5 Intake & Output: Intake and Output for Last 24 Hours 01/16/22 01/17/22 01/18/22 23:59 23:59 23:59 Intake Total 1780.33 / 1780.33 1000 / 1000 120 / 120 Output Total 1450 / 1450 1949 / 1950 1949 / 1949 Balance 330.33 / 330.33 -950 / -950 -1830 / -1830 Lab / Micro Data Result Diagrams: 01/17/22 07:40 01/17/22 07:40 Physical Exam Const alert, oriented x3 and no apparent distress General Appearance: cooperative, comfortable and well kempt HEENT normocephalic and head/scalp atraumatic Head and Scalp: normal to inspection Eyes EOMs intact bilaterally and conjunctivae normal Neck full ROM General: normal visual inspection Chest inspection of chest normal and palpation of chest normal Resp normal respiratory effort and normal air movement Effort and Inspection: able to speak in complete sentences Cardio regular rate and peripheral pulses 2+ throughout GI soft to palpation, non-tender and non-distended Back/Spine Back/Spine Narrative: Dressing clean dry and intact. Incision well approximated with interrupted sutures in place. Mild resolving ecchymosis around the surgical site. No tenderness, erythema, drainage or fluctuance Cervical Spine: cervical ROM normal Thoracic Spine / Upper Back: normal to inspection Lumbar Spine / Lower Back: normal to inspection Extremity normal to inspection, full ROM, normal capillary refill, no clubbing, cyanosis or edema and no calf tenderness Skin no rashes or lesions noted General Skin Exam: no breakdown Neuro oriented x3, CN's II-XII intact bilaterally, moves all extremities, no focal motor deficits, no sensory deficits noted and deep tendon reflexes 2+ bilaterally Motor Exam: strength 5/5 throughout Assessment & Plan Assessment/Plan (1) Lumbar stenosis: PLAN: Plan I had a lengthy discussion with the patient. He is cleared from a medical standpoint for discharge. He is scheduled to be discharged to [facility] tomorrow. See discharge instructions. Follow-up with me in clinic as scheduled for suture removal. Call our clinic with any questions or concerns.
[2022-01-18 20:15] VITALS: BP 164/79; PULSE 93; RESP 14; TEMP 37.1; O2SAT 95
[2022-01-18] MEDS: QUEtiapine 25 MG Tablet 12.5 MG PO (22:18)
[2022-01-18] MEDS: Atorvastatin Calcium 40 MG Tablet PO (22:19)
[2022-01-19] VITALS (8 sets, daily range): BP systolic 123–167; BP diastolic 68–89; PULSE 59–99; RESP 14–18; TEMP 36.6–36.8; O2SAT 89–95
[2022-01-19] MEDS: Levothyroxine 125 MCG Tablet PO (06:19)
[2022-01-19] MEDS: Acetaminophen 500 MG Tablet 1000 MG PO ×3 (06:19→22:07)
--- NOTE | 2022-01-19 09:32 | CASEMGMT ---
Social Work SW called pt to discuss options of SNF vs. Home. Left message requesting , Geeta, call back to determine pt/family choice. Left contact information. MIKO Ramsay
[2022-01-19] MEDS: DULoxetine Hcl 20 MG Capsule 40 MG PO (10:23)
[2022-01-19] MEDS: Cholecalciferol (Vit D3) 125 MCG CAPSULE (5,000 UNITS) PO (10:23)
[2022-01-19] MEDS: cycloBENZAPRine HCl 10 MG Tablet PO ×2 (10:28→15:17)
[2022-01-19] MEDS: Memantine Hydrochloride 10 MG Tablet PO ×2 (10:28→22:06)
[2022-01-19] MEDS: oxyCODONE 5 MG Tablet PO ×2 (10:28→15:17)
[2022-01-19] MEDS: Donepezil HCl 10 MG Tablet PO ×2 (10:28→22:09)
--- NOTE | 2022-01-19 11:30 | CASEMGMT ---
Discharge Associate Attorney Yulia polanco dermatology physician assistant sent referral to [facility] via [facility]. Plan: [facility], Waiting Acceptance Yulia Monsalve Discharge Associate Attorney
--- NOTE | 2022-01-19 11:32 | CASEMGMT ---
Social Work HERMES received call from pt sister Jenny who states pt cannot return home at this time and SNF is needed. Jenny inquiring about [facility]. Per phone call with pt's on Wednesday, permission was given to speak with Jenny. HERMES informed Jenny that [facility] is out of network and there is a copay of $184 per day. HERMES reviewed list of area facilities that are in network with insurance. Jenny's second choice is [facility]. Jenny states she will speak with pt to update. HERMES placed call to pt Geeta and left message requesting return call. Yulia, discharge sales assistant entertainment and media, to make referral to [facility]. Plan: [facility], pending acceptance and MIKO Sanders
--- NOTE | 2022-01-19 13:42 | CASEMGMT ---
Discharge Cs Associate Eden from [facility] reached out. Patient has been accepted to [facility]. Pre-cert has been started. HERMES Diaz notified. Plan: [facility], Waiting pre-cert. Yulia Monsalve Discharge Cs Associate
--- NOTE | 2022-01-19 14:28 | CASEMGMT ---
Social Work SW called pt to inform of acceptance at [facility]. , Geeta, was appreciative and stated would wait for approval from insurance. SW requested Geeta call pt's sisters to update them. Geeta agreeable. PLAN: [facility], pending precert. MIKO Ramsay
[2022-01-19] MEDS: Ensure Plus High Protein 120 ML LIQUID PO ×2 (17:17→22:09)
--- NOTE | 2022-01-19 17:26 | PCM.PN.HOSP ---
Subjective Subjective Patient was seen and examined today, he voices no complaints of any fever chills or shortness of breath. We are currently awaiting authorization for short-term placement in a nursing home facility for the patient. Objective Data Objective Data Vital Signs: Vital Signs Temp Pulse Resp BP Pulse Ox O2 Del Method O2 Flow Rate 98.3 F 59 L 18 167/89 H 92 Room Air 2 01/19/22 17:06 01/19/22 17:06 01/19/22 17:06 01/19/22 17:06 01/19/22 17:06 01/19/22 17:06 01/19/22 13:22 Oxygen Flow Rate (L/min) 2 Oxygen Delivery Method Room Air Weight: 90.718 kg Body Mass Index (BMI) 29.5 Intake & Output: Intake and Output for Last 24 Hours 01/17/22 01/18/22 01/19/22 23:59 23:59 23:59 Intake Total 1000 / 1000 120 / 120 250 / 250 Output Total 1950 / 1950 1950 / 2550 2100 / 2100 Balance -950 / -950 -1830 / -2430 -1850 / -1850 Lab / Micro Data Result Diagrams: 01/17/22 07:40 01/17/22 07:40 Physical Exam Const alert, oriented x3, no apparent distress and average body habitus General Appearance: cooperative, well kempt and well developed Orientation / Consciousness: awake, oriented to person, oriented to place and oriented to time HEENT normocephalic, head/scalp atraumatic and moist oral mucous membranes Eyes PERRL, EOMs intact bilaterally and conjunctivae normal Neck supple, no JVD, thyroid normal and no carotid bruits General: trachea midline Resp normal respiratory effort, no retractions, no use of accessory muscles and clear to auscultation bilaterally Auscultation: Negative for rales, rhonchi or wheezes Cardio regular rate, regular rhythm, S1 normal heart sound, S2 normal heart sound, no murmurs, no rub and no gallops GI normal to inspection, nondistended, normoactive bowel sounds, soft to palpation, non-tender and non-distended Extremity no clubbing, cyanosis or edema Skin no rashes or lesions noted General Skin Exam: no breakdown Neuro oriented x3, CN's II-XII intact bilaterally, no focal motor deficits and no sensory deficits noted Sensorium / Orientation: awake and alert Speech: speech normal Psych affect normal Assessment & Plan Assessment/Plan (1) Lumbar stenosis: PLAN: Plan 1. Chronic depression-patient remains on Cymbalta #2 dementia-patient remains on Aricept and memantine #3 urinary retention-patient currently has a Bailey catheter in place, I will start him on Flomax today #4 essential hypertension-patient will remain on his present medications #5 hypothyroidism-patient is on Synthroid #6 spinal stenosis lumbar region-status post posterior lumbar interbody fusion L5-S1-PT and OT are seeing the patient, he will need at least short-term placement in a nursing home facility for rehab services Charges/Coding Visit Charges Inpatient E&M: 71959 Subs Hosp L2
[2022-01-19] MEDS: Acetaminophen/Butalbital/Caffe 1 Tablet PO (18:18)
[2022-01-19] MEDS: Tamsulosin HCl 0.4 MG Capsule 0.8 MG PO (18:19)
[2022-01-19] MEDS: Atorvastatin Calcium 40 MG Tablet PO ×2 (22:06→22:07)
[2022-01-19] MEDS: QUEtiapine 25 MG Tablet 12.5 MG PO (22:07)
--- NOTE | 2022-01-20 00:03 | NURSING ---
Pt has HX sleep apnea - placed on 2L O2 via [place]
[2022-01-20 05:00] VITALS: BP 156/82; PULSE 73; RESP 18; TEMP 36.9; O2SAT 93
[2022-01-20] MEDS: oxyCODONE 5 MG Tablet PO ×2 (06:00→14:38)
[2022-01-20] MEDS: Levothyroxine 125 MCG Tablet PO (06:00)
[2022-01-20] MEDS: Acetaminophen 500 MG Tablet 1000 MG PO ×2 (06:01→14:37)
[2022-01-20 07:35] VITALS: O2SAT 94
--- NOTE | 2022-01-20 07:53 | CASEMGMT ---
Social Work Fern from [facility] reached out via [employer] to inform insurance authorization has been obtained. This SW informed Dr. Castillo. MIKO Ramsay
[2022-01-20 08:10] VITALS: BP 144/72; PULSE 67; RESP 16; TEMP 36.7; O2SAT 92
[2022-01-20 08:50] VITALS: O2SAT 98
[2022-01-20 09:08] VITALS: O2SAT 98
[2022-01-20] MEDS: DULoxetine Hcl 20 MG Capsule 40 MG PO (10:31)
[2022-01-20] MEDS: Cholecalciferol (Vit D3) 125 MCG CAPSULE (5,000 UNITS) PO (10:31)
[2022-01-20] MEDS: Memantine Hydrochloride 10 MG Tablet PO (10:32)
[2022-01-20] MEDS: Donepezil HCl 10 MG Tablet PO (10:32)
[2022-01-20] MEDS: Ensure Plus High Protein 120 ML LIQUID PO ×2 (10:34→14:38)
[2022-01-20] MEDS: cycloBENZAPRine HCl 10 MG Tablet PO (10:35)
--- NOTE | 2022-01-20 11:39 | CASEMGMT ---
Social Work SW attempted to call pt Geeta to inform of insurance approval. Called cell phone number that was provided yesterday. Geeta voiced understanding that pt would be discharging and transferring to [facility] today. Geeta also shared she would inform pt's other family of the plan. Plan: [facility] MIKO Ramsay
--- NOTE | 2022-01-20 13:29 | PCM.TXEXTCAR ---
Diet Diet Order/Speech Therapy: 01/15/22 18:05 Diet: Regular - General Food consistency:: Regular Liquid Consistency:: Regular/Thin Is pt able to select menu?: No Diet Comments: Distant supervision, Easy to Chew meats Routine Orders/Code Status Change Bailey Catheter: Maintain Bailey catheter x1 week then discontinue Wound(s) back: Wound Type: Surgical Incision Therapies Weight Bearing: Full weight bearing Physical Therapy: Eval and Treat Occupational Therapy: Eval and Treat Problem/Diagnosis (1) Lumbar stenosis: Status: Acute Code(s): M48.061 - Spinal stenosis, lumbar region without neurogenic claudication (2) Urinary retention: Status: Acute Code(s): R33.9 - Retention of urine, unspecified (3) Alzheimer's dementia: Status: Chronic Code(s): G30.9 - Alzheimer's disease, unspecified; F02.80 - Dementia in other diseases classified elsewhere without behavioral disturbance (4) Hyperlipidemia: Status: Chronic Code(s): E78.5 - Hyperlipidemia, unspecified Plan 1. Chronic depression-patient remains on Cymbalta #2 dementia-patient remains on Aricept and memantine #3 urinary retention-patient currently has a Bailey catheter in place #4 essential hypertension-patient will remain on his present medications #5 hypothyroidism-patient is on Synthroid #6 spinal stenosis lumbar region-status post posterior lumbar interbody fusion L5-S1-PT and OT are seeing the patient, he will need at least short-term placement in a halfway facility for rehab services Allergies/Procedures Done in Hospital Allergies No Known Allergies Allergy (Verified 01/15/22 06:09) Procedures: - (L5-S1 posterior lumbar interbody fusion: 01/15/2022) Type of Care/Length of Stay Estimated LOS: Convalescent Care Less Than 30 days Type of Care Needed: Skilled Rehab Potential: Good Prognosis: Good Additional Orders/Day of Discharge H&P will serve as current which was dated: 12/30/21 Day of Discharge: 01/20/22 Dietary and Speech Recommendations Dietitian Recommendations/Changes: regular diet- texture/consistency modifications per SENIOR PIPING DESIGNER; will adjust ensure to ensure plus high protein 120mL 4x/day given decreased appetite Follow Up Care Please Follow Up With: Berlin Castillo DO Discharge Plan Admission Admit Date/Time: 01/15/22 07:19 Primary Reason for Your Visit: Lumbar stenosis L5-S1 with spondylosis Attending Provider: Berlin Castillo Primary Care Provider: Yulisa Hernandez Consulting Providers: Parvin Nieto ; Mauri Gillespie ; Moshe Carnes Instructions Additional Instructions / Restrictions: 1. During your procedure, you received sedation through your IV. Please follow these instructions for the next 24 hours: Do not drive a motor vehicle, do not drink any alcoholic beverages, and do not sign any legal documents or make personal or business decisions. A responsible adult should stay with you at least 6 hours after the procedure. 2. Keep your surgical site/incision clean and the dressing dry and intact. Change dressing daily you may use an ice pack at the surgical site to reduce any swelling or discomfort. 3. Monitor the incision site for any signs or symptoms of infection. Watch for redness, excessive swelling or drainage, or continued pain at the incision site after 3 days. Contact your physician immediately for a fever, chills or a temperature of 101.5? F or greater. 4. Take your medication exactly as prescribed by your physician. Do not attempt to wean yourself off any of your medications even though your pain is improving. This process needs to be carefully monitored by your doctor. Take any antibiotics prescribed exactly as directed and until they are gone. 5. Avoid stretching, bending, pulling, twisting or any sudden movements. Do not bend or twist at the waist. Wear your back brace at all times when out of bed 6. No lifting greater than 5 pounds. 7. Do not operate a motor vehicle, equipment or a power tool while taking pain medication 8. Do not have any manipulation done by a chiropractor or any other physician without first consulting with the surgeon 9. Please contact our office if you are even scheduled for a CT scan or an MRI. 10. Please call us if you have any questions, problems or concerns. Discharge Orders/Prescriptions Prescriptions: New hydrocodone-acetaminophen 5-325 mg tablet 1 tab PO Q6H PRN (Reason: pain) 7 Days Qty: 10 0RF tamsulosin 0.4 mg Capsule 0.8 mg PO DAILY@1730 Qty: 0 0RF Continued donepezil 10 mg Tablet 10 mg PO BID simvastatin 80 mg Tablet 80 mg PO QHS levothyroxine 100 mcg Tablet 125 mcg PO DAILY memantine 10 mg Tablet 10 mg PO BID cholecalciferol (vitamin D3) [Vitamin D3] 125 mcg (5,000 unit) Tablet 125 mcg PO DAILY duloxetine 40 mg Capsule,Delayed Release(Dr/Ec) 40 mg PO DAILY Referrals / Follow Up: Yulisa Hernandez MD [Primary Care Provider] - Berlin Castillo DO [Med Staff - Active Staff] - See Referral Note (call office to schedule appointment) Disposition Disposition (needs filled in before D/C Order can be placed): Home, Self Care
[2022-01-20 13:53] VITALS: BP 112/60; PULSE 68; RESP 14; TEMP 36.8; O2SAT 95
--- NOTE | 2022-01-20 13:55 | PHA.DC.MR ---
Pharmacy Service has performed discharge medication reconciliation for this patient. The patient's discharge medication list was reviewed for discrepancies and discrepancies were resolved. Home Medications cholecalciferol (vitamin D3) 125 mcg (5,000 unit) tablet (Vitamin D3) 125 mcg PO DAILY supplement 10/03/21 donepezil 10 mg tablet 10 mg PO BID Dementia 10/03/21 duloxetine 40 mg capsule,delayed release 40 mg PO DAILY Depression 10/03/21 levothyroxine 100 mcg tablet 125 mcg PO DAILY Thyroid 10/03/21 memantine 10 mg tablet 10 mg PO BID Dementia 10/03/21 simvastatin 80 mg tablet 80 mg PO QHS HLD 10/03/21 hydrocodone-acetaminophen 5-325mg 5mg-325mg 1 tab PO Q6H PRN pain 7 days #10 tabs 01/20/22 tamsulosin 0.4 mg capsule 0.8 mg PO DAILY@1730 #0 caps 01/20/22
--- NOTE | 2022-01-20 14:05 | CASEMGMT ---
Social Work SW completed 7000 convalescent form in [facility] system. Faxed discharge orders to [facility] via [employer]. Set up cot transportation through [facility] for 3:30pm. SW called pt to notify of transport time. Left message on voicemail as did not answer. Pt nurse notified of transport time. Disposition: [facility], skilled convalescent level of care MIKO Ramsay
--- NOTE | 2022-01-20 15:06 | NURSING ---
REPORT CALLED TO DHARA WHARTON AT [facility]
--- NOTE | 2022-01-20 15:12 | PCM.PN.HOSP ---
Subjective Subjective Patient was seen and examined today, we received approval for the patient to go to a long term facility for inpatient rehab services. I talked with spinal surgery about his care and Dr. Castillo agreed that the patient was surgically stable for discharge. Objective Data Objective Data Vital Signs: Vital Signs Temp Pulse Resp BP Pulse Ox O2 Del Method O2 Flow Rate 98.3 F 68 14 112/60 95 Room Air 2 01/20/22 13:53 01/20/22 13:53 01/20/22 13:53 01/20/22 13:53 01/20/22 13:53 01/20/22 13:53 01/20/22 09:08 Oxygen Flow Rate (L/min) 2 Oxygen Delivery Method Room Air Weight: 90.718 kg Body Mass Index (BMI) 29.5 Intake & Output: Intake and Output for Last 24 Hours 01/18/22 01/19/22 01/20/22 23:59 23:59 23:59 Intake Total 120 / 120 490 / 730 590 / 590 Output Total 1950 / 2550 2400 / 2600 450 / 450 Balance -1830 / -2430 -1910 / -1870 140 / 140 Lab / Micro Data Result Diagrams: 01/17/22 07:40 01/17/22 07:40 Micro: Microbiology 01/20/22 12:14 Nasal Secretion SARS-CoV-2 Antigen (Rapid) - Final Physical Exam Narrative alert, patient is oriented as to person and place General Appearance: cooperative, well kempt and well developed Orientation / Consciousness: awake, oriented to person, oriented to place HEENT normocephalic, head/scalp atraumatic and moist oral mucous membranes Eyes PERRL, EOMs intact bilaterally and conjunctivae normal Neck supple, no JVD, thyroid normal and no carotid bruits General: trachea midline Resp normal respiratory effort, no retractions, no use of accessory muscles and clear to auscultation bilaterally Auscultation: Negative for rales, rhonchi or wheezes Cardio regular rate, regular rhythm, S1 normal heart sound, S2 normal heart sound, no murmurs, no rub and no gallops GI normal to inspection, nondistended, normoactive bowel sounds, soft to palpation, non-tender and non-distended Extremity no clubbing, cyanosis or edema Skin no rashes or lesions noted General Skin Exam: no breakdown Neuro oriented x3, CN's II-XII intact bilaterally, no focal motor deficits and no sensory deficits noted Sensorium / Orientation: awake and alert Speech: speech normal Psych Patient exhibits mild confusion Assessment & Plan Assessment/Plan (1) Lumbar stenosis: (2) Urinary retention: (3) Alzheimer's dementia: (4) Hyperlipidemia: PLAN: Plan 1. Chronic depression-patient remains on Cymbalta #2 dementia-patient remains on Aricept and memantine #3 urinary retention-patient currently has a Bailey catheter in place, this will remain in place when the patient goes to the retirement, I will write for it to be discontinued in a week #4 essential hypertension-patient will remain on his present medications #5 hypothyroidism-patient is on Synthroid #6 spinal stenosis lumbar region-status post posterior lumbar interbody fusion [id number] appears medically stable for transfer to an extended care facility for short-term rehab services I personally completed the discharge packet/documentation for the patient be transferred to an extended care facility. Charges/Coding Visit Charges Inpatient E&M: 22572 Subs Hosp L3
== END 2022-01-20 15:45 | disposition skilled nursing facility (03) | DRG 455 ==
LOC: SDC 12:27 → MS3 12:27
PROVIDERS: Student in an Organized Health Care Education/Training Program; Admitting Provider Orthopaedic Surgery; PCP Internal Medicine; Referring Provider Internal Medicine; Visit Provider Orthopaedic Surgery
PROC: 0SG00AJ Fusion of Lumbar Vertebral Joint with Interbody Fusion Device, Posterior Approach, Anterior Column, Open Approach (ICD-10-PCS; CPT 22630; principal; 2022-01-15 07:00)
DX: M48.061 Spinal stenosis, lumbar region without neurogenic claudication (principal); F02.80 Dementia in other diseases classified elsewhere, unspecified severity, without behavioral disturbance, psychotic disturbance, mood disturbance, and anxiety; E03.9 Hypothyroidism, unspecified; G30.9 Alzheimer's disease, unspecified; E78.00 Pure hypercholesterolemia, unspecified; G47.33 Obstructive sleep apnea (adult) (pediatric); I10 Essential (primary) hypertension; I44.7 Left bundle-branch block, unspecified; M47.816 Spondylosis without myelopathy or radiculopathy, lumbar region; M51.36 Other intervertebral disc degeneration, lumbar region; F32.A Depression, unspecified; R09.02 Hypoxemia; R29.810 Facial weakness; R13.10 Dysphagia, unspecified; R33.9 Retention of urine, unspecified; Z87.891 Personal history of nicotine dependence
CPT/HCPCS: 36415; 70450; 71046; 72020; 76000; 80048; 85025; 87426; 92507; 92526; 92610; 97110; 97116; 97162; 97166; 97530; 97535; 97802; 97803; 99251; C1713; J7120; A4216; G0463; J2405

== ENCOUNTER → 2022-03-25 | Outpatient (CLI) | payer MEDICARE, SELFPAY ==
--- NOTE | 2022-03-25 15:44 | NEURO ---
NCS and/or EMG Patient Report Ordering Doctor: Berlin Castillo DATE OF SERVICE: 03/25/22 Zachariah presents for electrodiagnostic testing of the right upper limb. He reports numbness, weakness and tingling in the right hand. Electrodiagnostic findings: Right median motor nerve demonstrates prolonged distal latency with normal amplitude and borderline reduced conduction velocity. Right ulnar motor nerve demonstrates diminished amplitude. There is decreased ulnar motor conduction velocity, but no drop across the elbow. Right ulnar F wave not obtainable. Prolonged right median sensory latency at the wrist. Absent right ulnar sensory response. On needle EMG, there is decreased recruitment noted in the right first dorsal interosseous. Electrodiagnostic impression: This is an abnormal study. 1. Electrodiagnostic findings demonstrate right-sided median mononeuropathy. This consistent with a moderate right carpal tunnel syndrome. 2. 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 There is no evidence for cubital tunnel syndrome. 3. There is no electrodiagnostic evidence for cervical radiculopathy.
== END | disposition home or self-care (01) ==
LOC: PSN 14:49
PROVIDERS: PCP Internal Medicine; Referring Provider Orthopaedic Surgery; Visit Provider Orthopaedic Surgery
DX: R20.2 Paresthesia of skin (principal)
CPT/HCPCS: 95886; 95910

== ENCOUNTER → 2022-10-19 | Outpatient (CLI) | payer MEDICARE, SELFPAY ==
[2022-10-19 10:02] LABS: Hematocrit 46.7 % (40-54); Hemoglobin 14.9 g/dL (13.0-16.5); Mean Corp Hgb Conc 31.9 g/dL (32-36); Mean Corpuscular Hgb 32.1 pg (27.0-32.0); Mean Corpuscular Volume 100.6 fL (80-94); Mean Platelet Vol. 9.4 fl (6.2-12.0); Platelet Count 208 K/mm3 (150-450); RBC Distribution Width CV 13.9 % (11.6-14.6); RBC Distribution Width SD 51.8 fl (35.1-43.9); Red Blood Count 4.64 M/mm3 (4.6-6.2); White Blood Count 5.4 K/mm3 (4.4-11.0)
[2022-10-19 10:22] LABS: Vitamin B12 288 pg/mL (211-911)
[2022-10-19 10:24] LABS: AST(SGOT) 30 U/L (15-37); Alanine Aminotransfer ALT/SGPT 34 U/L (16-61); Albumin, Serum 3.8 g/dL (3.2-5.0); Alkaline Phosphatase 145 U/L (45-117); Anion Gap 4 (5-15); BUN 11 mg/dL (7-18); Chloride 104 mmol/L (98-107); Creatinine, Serum 1.37 mg/dL (0.70-1.30); EST Glomerular Filtration Rate 54 mL/min (>60); Est Glom Filt Rate - Afr Amer 65 mL/min (>60); Globulin 3.9 g/dL (2.2-4.2); Glucose 95 mg/dL (74-106); Potassium 3.9 mmol/L (3.5-5.1); Protein, Total 7.7 g/dL (6.4-8.2); Sodium Level 138 mmol/L (136-145); T4 Free Direct 0.63 ng/dL (0.76-1.46)
[2022-10-23 11:09] LABS: Free Kappa Light Chains 30.2 mg/L (3.3-19.4); Free Lambda Light Chains 17.5 mg/L (5.7-26.3)
== END | disposition home or self-care (01) ==
PROVIDERS: PCP Internal Medicine Infectious Disease; Referring Provider Psychiatry & Neurology Neurology; Visit Provider Psychiatry & Neurology Neurology
DX: G30.9 Alzheimer's disease, unspecified (principal); F02.80 Dementia in other diseases classified elsewhere, unspecified severity, without behavioral disturbance, psychotic disturbance, mood disturbance, and anxiety; G62.9 Polyneuropathy, unspecified; R33.9 Retention of urine, unspecified
CPT/HCPCS: 36415; 80053; 82607; 82746; 83883; 84425; 84439; 84443; 85027

== ENCOUNTER 2023-02-01 16:57 | Emergency (ER) | payer MEDICARE, SELFPAY ==
[2023-02-01 16:59] VITALS: BP 100/72; PULSE 60; RESP 19; TEMP 35.9; O2SAT 94; BMI 29.9
--- NOTE | 2023-02-01 17:07 | EKG12_ITS ---
Test Reason : SYNCOPE Blood Pressure : / mmHG Vent. Rate : 063 BPM Atrial Rate : 063 BPM P-R Int : 160 ms QRS Dur : 138 ms QT Int : 480 ms P-R-T Axes : 044 -37 -26 degrees QTc Int : 491 ms Sinus rhythm with Premature supraventricular complexes Left axis deviation Left bundle branch block Abnormal ECG Confirmed by JESÚS WILCOX, ISIDORO ([id number]), design editor JACQUELINE GOODMAN ([id number]) on 02/03/2023 10:44:58 AM Referred By: Confirmed By:ISIDORO ESPINOSA MD
[2023-02-01] MEDS: 0.9% Normal Saline (1000mL) 1,000 ML 1000 ML IV (17:10)
--- NOTE | 2023-02-01 17:21 | EDS_ITS ---
<Statement entered by Anna Chin MD - 02/01/23 20:35> I have personally performed a face to face assessment of the patient and have reviewed the RUFUS Note. Patient presents via EMS after near syncopal episode at the neurology office. Patient reportedly went to his appointment today having not eaten lunch as they were planning to go out afterwards. He felt a bit lightheaded and blood pressure was noted to be 80/60. They laid him down and gave him a piece of chocolate to eat as they were concern for low blood sugar as well. Patient feels improved at this time. Patient sitting upright in bed no acute distress. Head and neck examination unremarkable. Heart is slightly irregular with frequent PACs noted on the monitor. Lungs are clear. Abdomen is soft and nontender. No focal neurodeficits are noted. EKG is sinus with PACs. Lab work is unremarkable. Patient was not able to give a urine sample here. Bladder scan performed by nursing staff reveals only 100 cc of urine in the bladder. After IV fluids patient feels significantly improved. He is able to get up at bedside and does not feel weak or dizzy. He tolerated p.o. diet here without difficulty. Family is comfortable watching him at home and he will be discharged with them. HPI History of Present Illness Chief Complaint: Syncope Narrative Narrative: Patient is a 77-year-old male lives in a extended care facility with history of hypertension, hyperlipidemia, Alzheimer's dementia, lumbar stenosis who presents to the emergency department after a near syncopal episode. Patient states he was at a doctor's office, neurology. Patient then felt dizzy, lightheaded, and was laid down. Patient never actually had a full syncopal episode. Patient was given chocolate and felt much better. Did not check a blood sugar there. Patient was brought in by EMS. Patient is acting appropriate per the sister. [facility] Medical History (Updated 02/01/23 @ 18:33 by TRINI Arellano) CPAP (continuous positive airway pressure) dependence Dementia Depression Former smoker Gait instability Gastric reflux High cholesterol History of diverticulitis Injury of head and neck Loss of hearing Migraine headache Thyroid disease Home Medications cholecalciferol (vitamin D3) 125 mcg (5,000 unit) tablet (Vitamin D3) 125 mcg PO DAILY supplement 10/03/21 [History Last Taken 01/14/22] levothyroxine 100 mcg tablet 125 mcg PO DAILY Thyroid 10/03/21 [History Last Taken 01/14/22] hydrocodone-acetaminophen 5-325mg 5mg-325mg 1 tab PO Q6H PRN pain 7 days #10 tabs 01/20/22 [Rx Last Taken Unknown] tamsulosin 0.4 mg capsule 0.8 mg (2 x 0.4 mg) PO DAILY@1730 #0 caps 01/20/22 [Rx Last Taken Unknown] donepezil 10 mg tablet 10 mg PO DAILY Dementia #30 tabs 10/07/22 [Rx Last Taken Unknown] memantine 10 mg tablet 10 mg PO BID Dementia #60 tabs 10/07/22 [Rx Last Taken Unknown] atorvastatin 40 mg tablet 40 mg PO DAILY 02/01/23 [History Last Taken Unknown] buspirone 5 mg tablet 5 mg PO TID 02/01/23 [History Last Taken Unknown] cetirizine 10 mg tablet 10 mg PO DAILY 02/01/23 [History Last Taken Unknown] duloxetine 30 mg capsule,delayed release 30 mg PO DAILY 02/01/23 [History Last Taken Unknown] duloxetine 40 mg capsule,delayed release 40 mg PO DAILY Depression 02/01/23 [History Last Taken Unknown] famotidine 20 mg tablet 20 mg PO BID 02/01/23 [History Last Taken Unknown] lisinopril 5 mg tablet 5 mg PO DAILY 02/01/23 [History Last Taken Unknown] Allergy/AdvReac Type Severity Reaction Status Date / Time No Known Allergies Allergy Verified 02/01/23 15:27 Surgical History (Updated 12/31/21 @ 13:11 by Alexandria Shrestha) History of appendectomy History of cholecystectomy History of colectomy History of colonoscopy Hx of foot surgery Social History Smoking Status: Former smoker ROS ROS ED ROS Narrative Constitutional: Negative for fever, chills, weight loss, weakness Eyes: Negative for vision loss, vision change, double vision ENT: Negative for any sore throat, ear pain, congestion Cardiovascular: Negative for any chest pain, tightness, palpitations Respiratory: Negative for any cough, sputum production, hemoptysis, dyspnea, dy spnea on exertion, orthopnea Gastrointestinal: Negative for any abdominal pain, nausea, vomiting, diarrhea, constipation, blood in stool, blood in vomit : Negative for any urinary frequency, dysuria, retention, blood in urine Muscle skeletal: Negative for any muscle joint pain, stiffness, myalgias, arthralgias, neck pain, back pain Neurological: Negative for any headache, numbness or tingling. Positive for dizziness, near syncope Skin: Negative for any rashes, lumps, itching, abrasions, lacerations Psychiatric: Negative for any depression, anxiety, stress, suicidal ideation, homicidal ideation Hematologic: Negative for any easy bruising, excessive bruising, easy bleeding Allergies: Negative for any eczema, hives, rash EXAM Physical Exam Narrative Exam Narrative: Vital signs reviewed. Patient is alert and orient x2 which is baseline for the patient. HEET: Head normocephalic atraumatic, TMs clear bilaterally. Posterior pharynx is clear, moist mucous membranes. Nares clear bilaterally. Neck: Supple with no lymphadenopathy or tenderness. No signs of meningismus, negative jolt sign. Cardiac: Regular rate and rhythm no murmurs gallops or rubs, equal peripheral pulses bilaterally. Respiratory: Lungs clear to auscultation bilaterally. No chest tenderness. Abdomen: Soft, nontender, nondistended. No abdominal bruit or pulsatile masses. No hepatosplenomegaly Extremities: No peripheral edema, no signs of gross trauma or deformity. Active full range of motion of all extremities. Neuro: Cranial nerves II through XII intact, no focal neurological deficits. Skin: Clean dry and intact with no rash, purpura, petechiae, vesicles or pustules. Backs/flank: No CVA tenderness, no midline spinal tenderness, no deformity. Psych: Normal mood and affect. No SI, HI or acute psychosis. Const Vital Signs: 02/01/23 16:59 02/01/23 17:02 02/01/23 18:13 Temperature 96.6 F L Temperature Source Temporal Pulse Rate 60 68 Respiratory Rate 19 H 16 Respiratory Effort Normal Respiratory Pattern Normal Blood Pressure 100/72 118/71 Blood Pressure Mean 81 86 Pulse Ox 94 99 Oxygen Delivery Method Room Air Room Air Positive well nourished and well developed General Appearance ED: well developed MDM MDM Lab Data Attestation: I reviewed the patient's lab results. Labs: Laboratory Results - last 24 hr 02/01/23 17:14 WBC 5.6 RBC 4.23 L Hgb 13.5 Hct 42.9 MCV 101.4 H MCH 31.9 MCHC 31.5 L RDW Std Deviation 49.7 H RDW Coeff of Azalea 13.2 Plt Count 175 MPV 9.9 Immature Gran % (Auto) 0.200 Neut % (Auto) 50.0 Lymph % (Auto) 36.0 Cavalier % (Auto) 8.7 Eos % (Auto) 4.4 Baso % (Auto) 0.7 Absolute Neuts (auto) 2.8 Absolute Lymphs (auto) 2.03 Nucleated RBC % 0 Sodium 142 Potassium 4.3 Chloride 111 H Carbon Dioxide 26.0 Anion Gap 5 BUN 11 Creatinine 1.10 Estim Creat Clear Calc 61.80 Est GFR (MDRD) Af Amer 84 Est GFR (MDRD) Non-Af 69 BUN/Creatinine Ratio 10.0 Glucose 98 Calcium 7.9 L EKG Sinus rhythm: Attestation: I personally reviewed and interpreted this EKG as follows: Interpretation: Sinus Rhythm Comments: Rhythm, rate 63 bpm, TN 160 ms, QRS duration 138 ms, no acute ST elevation, no acute infarct noted Treatment and Re-Evaluation :: Patient appears generally well, patient appears nontoxic, vital signs are stable . Presenting to the emergency department for low blood pressure, near syncopal episode while at a doctor's office. Patient will receive 1 L of normal saline, basic laboratory values. Patient did not eat lunch today, this could be factor. Patient is acting appropriate this time. \Patient remained stable here, vital signs remained stable. After 1 L of normal saline, eating lunch, the patient's blood pressure was 120/83. Patient CBC was unremarkable, chemistries were unremarkable. Patient did not have any urine however patient had none in his bladder. Likely the patient was dehydrated. This could be causing his near syncopal episode as well as some vasovagal response. At this time, I spoke with the patient, the patient's 2 sisters, they do agree the patient stable for discharge. The patient is eating and drinking, was able to stand up and have a steady gait. Patient instructed to return for any worsening symptoms, all questions answered stable for discharge. Discharge Plan Triage Chief Complaint: Syncope ED Midlevel Provider: Ramesh Adame ED Provider: Anna Chin Dx/Rx/DC Orders Clinical Impression: Acute dehydration, Near syncope Instructions: Dizziness Fainting Causes, ED Dehydration (Adult) Prescriptions: No Action donepezil 10 mg tablet 10 mg PO DAILY Qty: 30 5RF memantine 10 mg tablet 10 mg PO BID Qty: 60 5RF buspirone 5 mg tablet 5 mg PO TID cetirizine 10 mg tablet 10 mg PO DAILY duloxetine 30 mg capsule,delayed release(DR/EC) 30 mg PO DAILY famotidine 20 mg tablet 20 mg PO BID lisinopril 5 mg tablet 5 mg PO DAILY atorvastatin 40 mg tablet 40 mg PO DAILY levothyroxine 100 mcg Tablet 125 mcg PO DAILY cholecalciferol (vitamin D3) [Vitamin D3] 125 mcg (5,000 unit) Tablet 125 mcg PO DAILY hydrocodone-acetaminophen 5-325 mg tablet 1 tab PO Q6H PRN (Reason: pain) 7 Days Qty: 10 0RF tamsulosin 0.4 mg Capsule 0.8 mg PO DAILY@1730 Qty: 0 0RF duloxetine 40 mg capsule,delayed release(DR/EC) 40 mg PO DAILY Primary Care Provider: Yulisa Hernandez Referrals: Nato Junior MD [Non-Staff] - Activity Restrictions/Additional Instructions: Please ensure that you eat dinner tonight. Make sure you drink plenty of fluid. Follow-up outpatient Disposition Disposition: Home, Self Care
[2023-02-01 17:45] LABS: Anion Gap 5 (5-15); BUN 11 mg/dL (7-18); Calcium,Total 7.9 mg/dL (8.5-10.1); Chloride 111 mmol/L (98-107); EST Glomerular Filtration Rate 69 mL/min (>60); Est Glom Filt Rate - Afr Amer 84 mL/min (>60); Glucose 98 mg/dL (74-106); Potassium 4.3 mmol/L (3.5-5.1); Sodium Level 142 mmol/L (136-145)
[2023-02-01 17:53] LABS: Absolute Lymphocyte Count 2.03 X10^3/uL (0.83-4.51); Absolute Neutrophil Count 2.8 X10^3/uL (2.0-7.7); Basophil# 0.04 X10^3/uL; Basophil% 0.7 % (0-1); Eosinophil# 0.25 X10^3/uL; Eosinophils% 4.4 % (0-5); Hematocrit 42.9 % (40-54); Hemoglobin 13.5 g/dL (13.0-16.5); Lymphocyte # 2.03 X10^3/ul (0.83-4.51); Mean Corp Hgb Conc 31.5 g/dL (32-36); Mean Corpuscular Hgb 31.9 pg (27.0-32.0); Mean Corpuscular Volume 101.4 fL (80-94); Mean Platelet Vol. 9.9 fl (6.2-12.0); Monocyte# 0.49 X10^3/uL; Monocyte% 8.7 % (0-10); NRBC Flagged by Analyzer 0 % (0-5); Neutrophil # 2.82 X10^3/uL (2.7-7.7); Platelet Count 175 K/mm3 (150-450); RBC Distribution Width CV 13.2 % (11.6-14.6); RBC Distribution Width SD 49.7 fl (35.1-43.9); Red Blood Count 4.23 M/mm3 (4.6-6.2); White Blood Count 5.6 K/mm3 (4.4-11.0)
--- NOTE | 2023-02-01 18:12 | ED.RN ---
Bladder scan performed with 150 ml found in bladder. EMD aware.
[2023-02-01 18:13] VITALS: BP 118/71; PULSE 68; RESP 16; O2SAT 99
--- NOTE | 2023-02-01 18:15 | ED.RN ---
Patient given milk, cookies and turkey sandwich. Patient eating well.
== END 2023-02-01 18:47 | disposition home or self-care (01) ==
PROVIDERS: Nurse Practitioner; Emergency Provider Emergency Medicine; PCP Internal Medicine; Visit Provider Emergency Medicine
DX: E86.0 Dehydration (principal); F02.80 Dementia in other diseases classified elsewhere, unspecified severity, without behavioral disturbance, psychotic disturbance, mood disturbance, and anxiety; G30.9 Alzheimer's disease, unspecified; R55 Syncope and collapse; Z87.891 Personal history of nicotine dependence
CPT/HCPCS: 80048; 85025; 93005; 99284

== ENCOUNTER → 2023-02-24 | Outpatient (CLI) | payer MEDICARE, SELFPAY ==
--- NOTE | 2023-02-24 10:18 | MRI_ITS ---
EXAM: MR HEAD WITHOUT INTRAVENOUS CONTRAST CLINICAL INDICATION: Dementia. History of traumatic brain injury TECHNIQUE: Multiplanar and multisequence MR images of the brain were obtained without intravenous contrast. COMPARISON: CT head without contrast 01/16/2022. FINDINGS: BRAIN AND EXTRA-AXIAL SPACES: Few posterior periventricular white matter T2 FLAIR hyperintensity foci are chronic white matter ischemic changes. No intracranial mass or mass effect. Posterior fossa structures are unremarkable. No hydrocephalus. Basal cisterns are patent. No diffusion restriction to suspect acute or subacute ischemic infarct. No remote cortical-based ischemic infarct. No abnormal magnetic susceptibility foci to suggest or suspect remote hemorrhagic contusion or hemorrhagic bleeding from traumatic brain injury. SELLA: Unremarkable. Normal sella turcica, pituitary gland, infundibular stalk, optic chiasm and hypothalamus. AUDITORY SYSTEM: Unremarkable. The internal auditory canals are patent. BONES/JOINTS: Unremarkable. No discrete lytic or blastic abnormalities. SINUSES: Unremarkable as visualized. Clear. MASTOID AIR CELLS: Unremarkable as visualized. Clear. ORBITS: Unremarkable as visualized. Both globes, extraocular muscles, optic nerves and retrobulbar fat appear unremarkable. VASCULATURE: Unremarkable as visualized. Normal flow voids in the major intracranial circulation. MRI/Brain without Contrast IMPRESSION: 1. No MRI evidence of acute or subacute ischemic infarct or remote ischemic infarct. 2. Few chronic posterior periventricular white matter ischemic changes in both cerebral hemispheres. 3. No MRI evidence of remote intracranial bleeding from remote traumatic brain injury. Electronically Signed: Pietro Moya MD at 14:27 EDT ,
== END | disposition home or self-care (01) ==
LOC: MRI 10:04
PROVIDERS: PCP Internal Medicine; Referring Provider Psychiatry & Neurology Neurology; Visit Provider Psychiatry & Neurology Neurology
DX: F03.90 Unspecified dementia, unspecified severity, without behavioral disturbance, psychotic disturbance, mood disturbance, and anxiety (principal)
CPT/HCPCS: 70551

== ENCOUNTER → 2023-12-28 | Outpatient (CLI) | payer MEDICARE, SELFPAY ==
--- NOTE | 2023-12-28 | BON_PTH ---
PATIENT: ARCELIA GONZALEZ [facility] U[facility][id number] AGE/SX: 78/M ROOM: RE12/28/[address]: Dr. Berlin Castillo DO : 1945 BED: DIS: 12/28/2023 SPEC #: [id number] RECD: 12/28/23 15:05 STATUS: ANSELMO RAUL #: [id number] BRIAN: 12/28/23 00:[address]: Berlin Castillo DEPT: SURGICAL PATHOLOGY RECD BY: Jim Price ENTERED: 12/29/23 08:32 SP TYPE: Bone OTHR DR: Dr. Yulisa Hernandez MD [facility] Tissues: Vertebra, NOS Procedures: Decalcification bone/plaque Surgery Specimen Level IV HEADER OPERATION: Lumbar 2 kyphoplasty PRE-OP DIAGNOSIS: Wedge compression fracture of second lumbar, spinal stenosis, without neurologic claudication, spondylosis, intervertebral disc degeneration, dorsalgia TISSUE SUBMITTED: L2 deeper body bone biopsy MICROSCOPIC DIAGNOSIS L2 body bone, core biopsy: A piece of bone with callus formation and reactive changes, clinically compression fracture. Negative for malignancy. See comment. 12/30/2023 COMMENT Clinical correlation and appropriate follow up are necessary. MICROSCOPIC DESCRIPTION Slides are reviewed. GROSS DESCRIPTION Received is one container labeled with the patient's name and not further designated. The specimen consists of a piece of bone measuring 1.5cm in length and 0.1cm in diameter. The entire specimen is submitted in one cassette after decalcification. 12/29/2023 TC:5 CPT:63342,55987
== END | disposition home or self-care (01) ==
LOC: LABSPEC 15:58
PROVIDERS: PCP Internal Medicine; Referring Provider Orthopaedic Surgery; Visit Provider Orthopaedic Surgery
DX: S32.020A Wedge compression fracture of second lumbar vertebra, initial encounter for closed fracture (principal); M48.061 Spinal stenosis, lumbar region without neurogenic claudication
CPT/HCPCS: 88305; 88311